=== PATIENT | male | born 1985 | race Caucasian/White ===

== ENCOUNTER 2016-06-23 08:41 | Emergency (ER) | payer SELFPAY ==
--- NOTE | 2016-06-23 09:26 | ER Document Report ---
HPI - HPI Patient complains to provider of: ankle injury Pain Level: 4 Context: 30 yo male c/o pain to right ankle. stepped in hole and twisted ankle. Associated Symptoms: None Exacerbated by: Movement, Walking Relieved by: Denies Similar symptoms previously: No Recently seen / treated by doctor: No - ROS Systems Reviewed and Negative: Yes All other systems reviewed and negative - DERM Skin Color: Normal Past Medical History - General Information source: Patient - Social History Smoking Status: Current Every Day Smoker Smoking Education Provided: Yes - cessation encouraged Frequency of alcohol use: Social Drug Abuse: None Lives with: Family Family History: Reviewed & Not Pertinent Patient has suicidal ideation: No Patient has homicidal ideation: No Renal/ Medical History: Denies: Hx Peritoneal Dialysis Vertical Provider Document - CONSTITUTIONAL Agree With Documented VS: Yes Exam Limitations: No Limitations General Appearance: WD/WN, No Apparent Distress - INFECTION CONTROL TRAVEL OUTSIDE OF THE [place] IN LAST 30 DAYS: No - HEENT HEENT: Atraumatic - NECK Neck: Normal Inspection, Supple - RESPIRATORY Respiratory: Breath Sounds Normal, No Respiratory Distress O2 Sat by Pulse Oximetry: 100 - CARDIOVASCULAR Cardiovascular: Regular Rate, Regular Rhythm - MUSCULOSKELETAL/EXTREMETIES Musculoskeletal/Extremeties: Tender - right lateral malleolous. most painful anteriolateral ankle. + soft tissue swelling. distal SMC intact - NEURO Level of Consciousness: Awake, Alert, Appropriate Course - Re-evaluation Re-evalutation: 06/23/16 10:00 xray showing small irregularity to tip of lateral malleolus which could be small avulsion fracture. this is not consistant with exam. most painful to anteriolateral ankle. will immobilize ankle with stirrup splint and provide crutches. pt is stable for discharge and ortho follow up. pt agrees with plan - Vital Signs Vital signs: Temp Pulse Resp BP Pulse Ox 98.2 F 77 16 142/85 H 100 06/23/16 08:46 06/23/16 08:46 06/23/16 08:46 06/23/16 08:46 06/23/16 08:46 Procedures - Immobilization right ankle Pre-Proc Neuro Vasc Exam: Normal Immobilizer type: Ankle stirrup Performed by: PCT Post-Proc Neuro Vasc Exam: Normal Alignment checked and good: Yes Discharge - Discharge Clinical Impression: Ankle sprain Qualifiers: Encounter type: initial encounter Laterality: right Condition: Stable Disposition: HOME, SELF-CARE Instructions: Shaquille Wrap ([facility]), Use of Crutches ([facility]), Ice & Elevation ([facility]), Ankle Stirrup Splint ([facility]), Sprained Ankle ([facility]), Ibuprofen (General) ([facility]) Prescriptions: Ibuprofen [Motrin 800 Mg Tablet] 800 mg PO Q6H #20 tablet
[2016-06-23 10:25] VITALS: BP 121/82
== END 2016-06-23 10:24 | disposition home or self-care (01) ==
LOC: ER 08:41
DX: S93.401A Sprain of unspecified ligament of right ankle, initial encounter (principal); X50.1XXA Overexertion from prolonged static or awkward postures, initial encounter; M25.571 Pain in right ankle and joints of right foot; Y92.007 Garden or yard of unspecified non-institutional (private) residence as the place of occurrence of the external cause; F17.200 Nicotine dependence, unspecified, uncomplicated; Z71.6 Tobacco abuse counseling
CPT/HCPCS: 99283; 73610; L1902